=== PATIENT | male | born 1965 | race African-American/Black ===

== ENCOUNTER 2022-03-30 00:03 | Emergency (ER) | payer MEDICAID ==
[~2022-03-30] VITALS: Ht 172.7 cm; Wt 80.0 kg
[2022-03-30 00:10] VITALS: BP 163/92
[2022-03-30] MEDS ORDERED: ASPIRIN 325MG EC TABLET PO ONE (00:30)
== END 2022-03-30 04:32 ==
LOC: ER 00:03
DX: R07.89 Other chest pain (principal)
CPT/HCPCS: 71045; 93005; 99283